=== PATIENT | female | born 1990 | race Caucasian/White ===

== ENCOUNTER 2020-11-25 00:26 | Observation (INO) ==
[2020-11-25] MEDS ORDERED: OXYTOCIN 30 UNITS/500 ML BAG IV PRN (00:50)
[2020-11-25] MEDS ORDERED: LACTATED RINGER'S 1,000 ML IV PRN (00:50)
[2020-11-25] MEDS ORDERED: SODIUM CHLORIDE 0.9% 250 ML IV PRN (01:09)
[2020-11-25] MEDS ORDERED: ceFAZolin 2000MG 2,000 MG/15 ML SYR IV STA (01:09)
[2020-11-25] MEDS ORDERED: OXYTOCIN 20 UNITS in LACTATED RINGER'S 1,000 ML IV SCH ×2 (01:15→02:30)
[2020-11-25] MEDS ORDERED: BUTORPHANOL TARTRATE 1 MG/ML VIAL ONE (01:16)
[2020-11-25 01:18] LABS: Hematocrit (blood only) 31.4 % (37-47); Hemoglobin 10.9 g/dL (12.0-16.0); Mean Corpuscular Hemoglobin 31.2 pg (25-34); Mean Corpuscular Hgb Conc 34.7 g/dL (32-36); Mean Platelet Volume 9.3 fL (7.4-10.4); Platelet Count 227 K/uL (130-400); RDW Coefficient of Variation 13.4 % (11.5-14.5); RDW Standard Deviation 43.6 fL (36.4-46.3); Red Blood Count 3.49 M/uL (4.2-5.4); White Blood Count 21.25 K/uL (4.8-10.8)
[2020-11-25 01:33] LABS: Partial Thromboplastin Time 25.1 Seconds (21.0-31.0); Prothrombin Time 9.7 Seconds (9.0-12.0)
--- NOTE | 2020-11-25 01:36 | History & Physical Report ---
Date of Service November 25, 2020 Assessment & Plan (1) Retained placenta: Plan: At this point given duration since delivery for this retained placenta, feel best to remove under anesthesia so that proper EUA and evaluation of uterine cavity can be performed. She will not tolerate this at bedside and given now almost 3hr without delivery of placenta, suspicion high for abnl placentation that may result in hemorrhage and need for more procedures. Acuity of the si tuation reviewed with patient. Therefore performing all under anesthesia is prudent. She looks pale and frail and claims that is what she always looks like. Her arrival vitals showed low sbp and tachy and so now getting ivf bolus. Stat labs pending. covid pending. anesthesia has been called and OR getting ready. Start kefzol for likely planned 24hr course. she is aware there is a risk she will lose her uterus, ie hysterectomy and in plain terms told, then she would have no more babies. She verbalized understanding. She signed consent. Addendum: hgb 10 Admission and Anticipated Discharge Date Admission Date: November 25, 2020 History of Present Illness Chief Complaint: retained placenta Primary Care Provider: NO PCP 30yo who came by ambulance unassigned as she delivered baby at home via lumber mover but placenta retained. She notes delivery of at 1042pm. She is having pain with ctx. Bloody chux under her bottom from time of delivery per . She notes no issues with or this delivery, or any deliveries but with her 2nd delivery the placenta was retained. The lumber mover at that time removed manually. She notes lumber mover was giving her herbals to try to get placenta to deliver. OBH: x 3 PMH: no med problems PSH: no surgeries. Allg: denies SH: no tob/etoh/drugs FH: non contrib Allergies Allergy/AdvReac Type Severity Reaction Status Date / Time No Known Allergies Allergy Unverified 11/25/20 00:56 Review of Systems as per Subjective / HPI Physical Exam Constitutional: well developed, + acute distress and + ill appearing Gastrointestinal (Abdomen): ff 2down, nt, abd soft no rebound or guarding. Musculoskeletal: nt calves. Neurologic: grossly normal Genitourinary: no evidence of active bleeding with fundal pressure. gentle vaginal exam attempted and palpate partial placenta in vagina?, difficult exam due to poor tolerance. Results & Data ([facility]) Vital Signs (Past 12 Hours) Vital Signs Pulse Pulse Ox 11/25/20 01:22 100 H 97 11/25/20 01:17 105 H 99 11/25/20 01:12 106 H 100 11/25/20 00:51 114 H 98 Coding Level of Care Code 01997 Initial Inpt Care Lvl 3 (57 - DECISION FOR SURGERY) Diagnoses Retained placenta O73.0
[2020-11-25] MEDS ORDERED: ATROPINE SULFATE 0.1 MG/ML 10ML SYR IV PRN (01:45)
[2020-11-25] MEDS ORDERED: ePHEDrine sulfate 50 MG/ML AMP IV PRN (01:45)
[2020-11-25] MEDS ORDERED: ONDANSETRON INJ 2 MG/ML 2 ML VIAL IV PRN (01:45)
[2020-11-25] MEDS ORDERED: fentaNYL citrate 100 MCG/2 ML VIAL IV PRN (01:45)
--- NOTE | 2020-11-25 01:45 | Anesthesiology Consultation ---
Date of Service November 25, 2020 Assessment & Plan (1) Encounter for pre-operative examination: Chart Review Chart Review: Acceptable Risk for Surgery and Patient NOT seen in Pre Admission Testing Consults Requested none ASA [id number] Proposed Anesthesia Anesthesia Type: General Risk / Benefits Reviewed With: PT / POA / Parent / Guardian, Accepts Plan and Informed Consent Obtained History Surgery Operation Date: 11/25/20 01:10 Proposed Procedures p Dilatation and Curettage - Felicia Skinner MD, FACOG Height/Weight Height: 5 ft 8 in Weight: 54.431 kg Allergies Allergy/AdvReac Type Severity Reaction Status Date / Time No Known Allergies Allergy Unverified 11/25/20 00:56 Exercise / Class Metabolic Activity II 4-5 Yardwork/Stairs/Walk up hill Past Anesthesia History No Hx of Anesthesia Complications and No Family Hx of Anesthesia Complications History of PONV No Hx of PONV and No Hx of Motion Sickness Social History Smoking Status: Never smoker Hx Alcohol Use: No Hx Substance Use: No substance use type: does not use Physical Exam Vital Signs Last Vital Signs Temp 37.2 C 11/25/20 01:05 Pulse 101 H 11/25/20 01:42 Resp 18 11/25/20 01:05 BP 120/64 11/25/20 01:30 Pulse Ox 98 11/25/20 01:42 ENMT Mouth: no dentition abnormality Thyromental Distance: > or= 3.5 Finger Breadths Mallampati Class: II Neck normal visual inspection Respiratory normal respiratory effort Auscultation: lungs clear to auscultation bilaterally Cardiovascular Rate/Rhythm: regular rate and regular rhythm Psychiatric Orientation: alert Testing Laboratory Results 11/25/20 01:06 PT 9.7 Seconds (9.0-12.0) 11/25/20 01:06 INR 1.0 (0.9-1.1) 11/25/20 01:06 APTT 25.1 Seconds (21.0-31.0) 11/25/20 01:06
[2020-11-25] MEDS ORDERED: LIDOCAINE 2% MPF LOCAL 5 ML VIAL INFIL ONE (01:55)
[2020-11-25] MEDS ORDERED: PROPOFOL IV EMULSION 10 MG/ML 20 ML VIAL IV ONE (01:55)
[2020-11-25] MEDS ORDERED: fentaNYL citrate 100 MCG/2 ML VIAL ONE (01:55)
[2020-11-25] MEDS ORDERED: ONDANSETRON INJ 2 MG/ML 2 ML VIAL ONE (02:22)
[2020-11-25] MEDS ORDERED: SUCCINYLCHOLINE CHLORIDE 20 MG/ML 10 ML VIAL IV ONE (02:22)
--- NOTE | 2020-11-25 02:23 | Post Operative Brief Note ---
PG Immediate Post Op with CF Date of Surgery November 25, 2020 Pre & Post Diagnosis Operation Date: 11/25/20 01:10 Pre-Op Diagnosis: Retained Placenta I identified the patient and participated in the time-out.: Yes Procedure Operation Date: 11/25/20 01:10 <No data on this case meets the specified criteria> 1. EUA 2. Manual removal of placenta Surgeon Felicia Skinner MD, FACOG Grommet Worker none Estimated Blood Loss 300 Findings Consistent with Post-Op Diagnosis (placenta adhered at anne, manually removed, sweep of uterus x 2 with no retained tissue, followed by rapid contraction of uterus, ff 4cm down at end of procedure) Fluids 600 Specimens Specimen Description: Placenta ( Anesthesia Type General Complications none Disposition Accompanied Patient To Recovery: No Disposition: L&D
--- NOTE | 2020-11-25 02:24 | Operative Report ---
PG Post Operative Report Pre & Post Diagnosis Operation Date: 11/25/20 01:10 Pre-Op Diagnosis: Retained Placenta Post Op Diagnosis: same I identified the patient and participated in the time-out.: Yes Procedure Operation Date: 11/25/20 01:10 <No data on this case meets the specified criteria> 1. EUA 2. Manual removal of placenta Surgeon Felicia Skinner MD, FACOG Roof Truss Machine Tender none Estimated Blood Loss 300 Findings Consistent with Post-Op Diagnosis (placenta adhered at anne, manually removed, sweep of uterus x 2 with no retained tissue, followed by rapid contraction of uterus, ff 4cm down at end of procedure) Fluids 600 Specimens placenta Drains none Anesthesia Type General Complications none Disposition Accompanied Patient To Recovery: No Disposition: L&D Indications 30yo with term home complicated by retained placenta, arrived by ambulance. >3hr from delivery. Counseled re: need for EUA and removal of placenta. Agreed and consent signed. Description of Procedure The patient was taken to the operating room and identified. After adequate general anesthesia was obtained she was placed in the dorsolithotomy position and prepped and draped in the usual sterile fashion. The bladder was drained under sterile conditions for clear yellow urine approximately 200 cc.The operato rs hand was placed into the vagina palpating a portion of the placenta within the vagina itself. The cord was then grasped with a Rosita clamp and with traction the cord avulsed.The operators hand was then placed into the vagina and the placenta was manually extracted by cleaving the remaining plane and attachments to the lower uterine segment with the results of the placenta coming out in pieces followed by a large amount of clot and blood. The uterus was manually swept x2 to remove any remaining tissue and no further retained products of conception were suspected.With dilute Pitocin infusing, the uterus contracted down quickly and the operators hand was used for bimanual massage. The fundus was firm approximately 4 cm down from the umbilicus and the cervix was contracted down enough to not allow further exploration of the uterus. The patient was observed for an additional 10 to 15 minutes with no evidence of worsening bleeding and evidence of a continued contracted uterus. Of note the cervix was bruised anteriorly. The cervix sulci were examined with no lacerations noted. At this point the patient was returned to the supine position and awoken from her anesthesia and transported to the recovery room in stable condition. All sponge lap needle counts were correct x2. I attest to the content of the Intraoperative Record and any orders documented therein. Any exceptions are noted below. OB Procedure charges OB Charges 58909 Placenta (manual removal of placenta and exam under anesthesia)
[2020-11-25] MEDS ORDERED: HYDROCORTISONE ACETATE 25 MG SUPP PR PRN (02:28)
[2020-11-25] MEDS ORDERED: ACETAMINOPHEN 325 MG TAB PO PRN (02:28)
[2020-11-25] MEDS ORDERED: IBUPROFEN 600 MG TAB PO PRN (02:28)
[2020-11-25] MEDS ORDERED: SUPERCREAM 0.870% 15 GM JAR EXT PRN (02:28)
[2020-11-25] MEDS ORDERED: BENZOCAINE 20% AER SPR 82.5 GM CAN EXT PRN (02:28)
[2020-11-25] MEDS ORDERED: oxyCODONE/ACETAMINOPHEN 5mg/325mg TAB PO PRN (02:28)
--- NOTE | 2020-11-25 02:48 | Anesthesiology Progress Note ---
Date of Service November 25, 2020 Anesthesia Post Procedure Vital Signs Vital Signs: Temp Pulse Resp BP Pulse Ox 11/25/20 02:44 85 100 11/25/20 02:40 98 H 131/86 11/25/20 02:39 87 100 11/25/20 01:47 96 H 98 11/25/20 01:42 101 H 98 11/25/20 01:37 99 H 98 11/25/20 01:32 92 H 100 11/25/20 01:30 99 H 120/64 11/25/20 01:27 101 H 96 11/25/20 01:22 100 H 97 11/25/20 01:17 105 H 99 11/25/20 01:12 106 H 100 11/25/20 01:05 37.2 C 18 11/25/20 00:51 114 H 98 Transfer of Care Handoff Completed per policy Notes Mental Status: alert / awake / arousable Patient Amnestic to Procedure: Yes Nausea / Vomiting: adequately controlled Pain: adequately controlled Airway Patency, RR, SpO2: stable & adequate BP & HR: stable & adequate Hydration State: stable & adequate Anesthetic Complications: no major complications apparent
[2020-11-25 07:52] VITALS: O2SAT 99
[2020-11-25] MEDS ORDERED: DOCUSATE SODIUM 100 MG CAP PO SCH (08:00)
--- NOTE | 2020-11-25 08:09 | Labor Progress Brief Note ---
Date of Service November 25, 2020 Subjective apparently was up to void about 630am and passed out on toilet, she does not think she voided. she denies pain. feels better than when i met her last night. missing her infant which is understandable. wants to go home king. Assessment & Plan (1) Retained placenta: (2) Post-operative state: Plan: pt states need to void, she will get up gradually to see if can get to commode. nursing helping her. need to await labs. ordered at 830 and rec total 3doses abx. if af and wbc and hgb stable, will consider d/c late today. she is not happy with this, wants to leave now. she needs to recognize that she was not even able to sit in bathroom. she smiles when i say this but then goes into conversation about medication and can't it be done closer to home. i explained to her she came here and asked me to help her and i am proceeding as i would in situation for any patient in her postcare and will need to stick with that. I typically give 3 doses iv postop and so i am trying to give her some leeway if the labs good, if af, if no tenderness, if no bleeding to foreshorten her time here of course realizing she wants to be with her . She and spouse given opportunity to ask any remaining questions and they deny. explained that i would be discussing plan of care with oncoming md. explained leaving against medical advice is her choice. Admission and Anticipated Discharge Date Admission Date: November 25, 2020 Physical Exam Constitutional: WD/WN, vitals as above Respiratory: normal respiratory effort, lungs clear to auscultation Cardiovascular: Rate/Rhythm: regular rate and regular rhythm Gastrointestinal (Abdomen): soft ff 2down but deviated to right. nt Neurologic: grossly normal Psychiatric: A+Ox3, euthymic affect Results & Data ([facility]) Vital Signs (Past 12 Hours) Vital Signs Temp Pulse Resp BP Pulse Ox 11/25/20 07:41 99 H 99 11/25/20 07:36 97 H 99 11/25/20 07:31 92 H 99 11/25/20 07:26 90 99 11/25/20 07:21 96 H 99 11/25/20 07:16 97 H 99 11/25/20 07:15 98.2 F 93 H 16 106/66 11/25/20 07:11 96 H 99 11/25/20 07:06 96 H 99 11/25/20 07:01 97 H 99 11/25/20 06:56 99 H 98 11/25/20 06:51 97 H 98 11/25/20 06:46 114 H 99 11/25/20 06:41 114 H 100 11/25/20 06:36 104 H 100 11/25/20 06:31 105 H 100 11/25/20 06:26 99 H 100 11/25/20 06:21 95 H 99 11/25/20 06:16 80 103/56 L 99 11/25/20 06:11 105 H 98 11/25/20 05:59 102 H 100 11/25/20 05:54 110 H 100 11/25/20 05:49 87 99 11/25/20 05:44 88 98 11/25/20 05:39 99 H 98 11/25/20 05:34 91 H 98 11/25/20 05:29 103 H 98 11/25/20 05:24 87 99 11/25/20 05:19 94 H 99 11/25/20 05:14 102 H 99 11/25/20 05:11 93 H 100/58 L 11/25/20 05:09 90 100 11/25/20 05:04 96 H 99 11/25/20 04:59 107 H 99 11/25/20 04:54 99 H 99 11/25/20 04:49 101 H 98 11/25/20 04:44 112 H 99 11/25/20 04:41 103 H 101/56 L 11/25/20 04:40 98.1 F 16 99 11/25/20 04:39 95 H 98 11/25/20 04:34 100 H 98 11/25/20 04:29 101 H 98 11/25/20 04:24 102 H 98 11/25/20 04:19 103 H 98 11/25/20 04:14 88 98 11/25/20 04:11 99 H 98/61 L 11/25/20 04:10 98.1 F 16 98 11/25/20 04:09 84 98 11/25/20 04:04 101 H 99 11/25/20 03:59 89 98 11/25/20 03:54 89 98 09/18/21 03:49 90 99 11/25/20 03:44 93 H 98 11/25/20 03:40 98.1 F 85 16 105/60 98 11/25/20 03:39 98 H 98 11/25/20 03:34 88 98 11/25/20 03:30 95 H 105/61 11/25/20 03:29 82 98 11/25/20 03:24 84 98 11/25/20 03:20 93 H 100/60 11/25/20 03:19 81 98 11/25/20 03:14 72 100 11/25/20 03:10 93 H 104/64 11/25/20 03:09 79 100 11/25/20 03:04 81 100 11/25/20 03:00 83 109/61 11/25/20 02:59 87 100 11/25/20 02:54 95 H 100 11/25/20 02:51 96 H 117/64 11/25/20 02:49 76 100 11/25/20 02:44 85 100 11/25/20 02:40 99.0 F 98 H 16 131/86 100 11/25/20 02:39 87 100 11/25/20 01:47 96 H 98 11/25/20 01:42 101 H 98 11/25/20 01:37 99 H 98 11/25/20 01:32 92 H 100 11/25/20 01:30 99 H 120/64 11/25/20 01:27 101 H 96 11/25/20 01:22 100 H 97 11/25/20 01:17 105 H 99 11/25/20 01:12 106 H 100 11/25/20 01:05 99.0 F 18 11/25/20 00:51 114 H 98 Coding Level of Care Code None Diagnoses Retained placenta O73.0 Post-operative state Z98.890
[2020-11-25 08:57] LABS: Hematocrit (blood only) 24.8 % (37-47); Hemoglobin 8.6 g/dL (12.0-16.0); Mean Corpuscular Hemoglobin 31.2 pg (25-34); Mean Corpuscular Hgb Conc 34.7 g/dL (32-36); Mean Corpuscular Volume 89.9 fL (80-100); Mean Platelet Volume 9.5 fL (7.4-10.4); Platelet Count 231 K/uL (130-400); RDW Coefficient of Variation 13.7 % (11.5-14.5); RDW Standard Deviation 44.5 fL (36.4-46.3); Red Blood Count 2.76 M/uL (4.2-5.4); White Blood Count 20.96 K/uL (4.8-10.8)
[2020-11-25] MEDS: ceFAZolin 2000MG 2,000 MG/15 ML SYR IV SCH ×2 (09:29→16:23)
[2020-11-25 09:39] LABS: Basophils # (auto) 0.01 K/uL (0-0.2); Immature Granulocytes # (auto) 0.06 K/uL (0.00-0.02); Immature Granulocytes % (auto) 0.3 %; Lymphocytes # (auto) 1.66 K/uL (1.2-3.4); Lymphocytes % (auto) 7.9 %; Monocytes % (auto) 6.7 %; Neutrophils # (auto) 17.83 K/uL (1.4-6.5); Neutrophils % (auto) 85.1 %
[2020-11-25] MEDS ORDERED: Nursing to Pharmacy Communication SCH (14:45)
[2020-11-25 15:23] VITALS: BP 112/60; PULSE 97
[2020-11-25 15:28] VITALS: TEMP 98.6
--- NOTE | 2020-11-29 20:26 | Discharge Summary ---
Date of Service Day of admission and day of discharge: November 25, 2020 Admission HPI Per Admitting Provider 30yo who came by ambulance unassigned as she delivered baby at home via reject opener and filler but placenta retained. She notes delivery of at 1042pm. She is having pain with ctx. Bloody chux under her bottom from time of delivery per . She notes no issues with or this delivery, or any deliveries but with her 2nd delivery the placenta was retained. The reject opener and filler at that time removed manually. She notes reject opener and filler was giving her herbals to try to get placenta to deliver. OBH: x 3 PMH: no med problems PSH: no surgeries. Allg: denies SH: no tob/etoh/drugs FH: non contrib Discharge Data Procedures Performed Operation Date: 11/25/20 01:10 Actual Procedures p Vaginal Exam under General Anesthesia and Manual Removal of Placenta(Not Applicable) - Felicia Skinner MD, [facility] Course (1) Retained placenta: Patient underwent above stated procedure and received 3 doses of iv kefzol due to exploration of uterus under anesthesia and elevated wbc. Her hemoglobin ultimately was 8.6. She had estimated total loss of blood of around 900-1000cc. She had wbc repeated and was decreased and never showed a fever. After her third dose of iv antibiotics she was stable and allowed d/c home. She was given instructions and asked to followup with someone within 2 wks. She has reject opener and filler she uses near her home and planned to do that followup with them. Coding Level of Care Code None Diagnoses Retained placenta O73.0
== END 2020-11-25 16:56 | disposition home or self-care (01) ==
LOC: 4S1 00:26 → OPB 00:26 → 4S1 00:30